=== PATIENT | male | born 1970 | race Caucasian/White ===

== ENCOUNTER 2018-05-05 06:11 | Day surgery (SDC) | payer OTHER ==
[2018-05-05] MEDS ORDERED: ceFAZolin 2 GM/DEXTROSE 100 ML IV ONE (06:21)
[2018-05-05] MEDS ORDERED: ACETAMINOPHEN 500 MG TAB PO ONE (06:21)
[2018-05-05] MEDS ORDERED: LR 1,000 ML IV ONE (06:24)
[2018-05-05] MEDS ORDERED: LIDOCAINE 1% 2 ML INJ ID PRN (06:24)
[2018-05-05] MEDS ORDERED: EPINEPHrine 1 MG/ML INJ ONE (07:17)
[2018-05-05] MEDS ORDERED: BACITRACIN ZINC 14.2 GM OINTTUBE TP ONE (07:17)
[2018-05-05] MEDS ORDERED: BUPIVACAINE 0.25% 30 ML SDV ONE (07:17)
[2018-05-05] MEDS ORDERED: GENTAMICIN SULFATE 80 MG/2 ML VIAL ONE (07:19)
[2018-05-05] MEDS ORDERED: CHLORHEXIDINE GLUC HIBICLENS 118 ML BTL TP ONE (07:19)
--- NOTE | 2018-05-05 07:51 | PDANEPAE ---
ANE History of Present Illness 48 year old for spinal cord stimulator generator change. ANE Past Medical History - Cardiovascular History Hx Hypertension: No Hx Arrhythmias: No Hx Chest Pain: No Hx Coronary Artery / Peripheral Vascular Disease: No Hx CHF / Valvular Disease: No Hx Palpitations: No - Pulmonary History Hx COPD: No Hx Asthma/Reactive Airway Disease: No Hx Recent Upper Respiratory Infection: No Hx Oxygen in Use at Home: No Hx Sleep Apnea: Yes Sleep Apnea Screening Result - Last Documented: Positive Pulmonary History Comment: CARLOS INSTRUCTED TO BRING DOS - Neurologic History Hx Cerebrovascular Accident: No Hx Seizures: No Hx Dementia: No Neurologic History Comment: 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 PTSD - Cancer History Hx Cancer: No - Congenital Disorder History Hx Congenital Disorders: No - GI History Hx Gastrointestinal Disorders: Yes Gastrointestinal History Comment: REFLUX - Other Health History Other Health History: CHRONIC PAIN SYNDROME. NERVE DAMAGE LOWER LT SCIATIC NERVE AND SOME ON RT. FULL DENTURES - Chronic Pain History Chronic Pain: Yes - Surgical History Prior Surgeries: SPINAL CORD STIMULATOR 2012. LUMBAR FUSION. RT KNEE ACL REPAIR. PILONIDAL CYST. ELKIN MASTECTOMY FOR TRANSGENDER TRANSFORMATION ANE Review of Systems Review of systems is: negative Review of Systems: - Exercise capacity Exercise capacity: >=4 METS METS (RN): 4 METS ANE Patient History - Allergies Allergies/Adverse Reactions: latex Allergy (Verified 05/05/18 06:35) Rash tree nut [Pecans] Allergy (Verified 05/05/18 06:35) Anaphylaxis walnut Allergy (Verified 05/05/18 06:35) Anaphylaxis - Home Medications Home medications: home medication list seen and reviewed Home Medications: Atorvastatin Calcium HS 04/09/18 [Last Taken 05/04/18 22:30] Baclofen TID 04/09/18 [Last Taken 05/04/18 22:30] DULoxetine DAILY 04/09/18 [Last Taken 05/04/18 22:30] Gabapentin BID 04/09/18 [Last Taken 05/04/18 22:30] Herbals/Supplements -Info Only DAILY 04/09/18 [Last Taken 05/02/18] Meloxicam DAILY 04/09/18 [Last Taken 04/28/18] Pantoprazole Sodium 04/09/18 [Last Taken 05/04/18 22:30] Prazosin HCl 04/09/18 [Last Taken 05/04/18 22:30] - NPO status NPO Status: no food or drink >8 hours NPO Since - Liquids (Date): 05/04/18 NPO Since - Liquids (Time): 23:30 NPO Since - Solids (Date): 05/04/18 NPO Since - Solids (Time): 22:00 - Anes Hx Anes Hx: slow to awaken from anesthesia - Smoking Hx Smoking Status: Former smoker Marijuana use: Yes - Alcohol Use Alcohol Use: Rarely - Family Anes Hx Family Anes Hx: neg - N/A ANE Labs/Vital Signs - Vital Signs Vital Signs: reviewed preoperatively; see RN documention for details Blood Pressure: 108/63 Heart Rate: 60 Respiratory Rate: 16 O2 Sat (%): 93 Height: 173.99 cm Weight: 110.677 kg ANE Physical Exam - Airway Neck exam: FROM Mallampati Score: Class 2 Mouth exam: dentures, melvin - Pulmonary Pulmonary: no respiratory distress - Cardiovascular Cardiovascular: regular rate and rhythym - ASA Status ASA Status: II ANE Anesthesia Plan Anesthesia Plan: general endotracheal anesthesia Total IV Anesthesia: No
[2018-05-05] MEDS ORDERED: MIDAZOLAM 2 MG/2 ML VIAL IVP ONE (08:04)
[2018-05-05] MEDS ORDERED: PROPOFOL/EMULSION 500 MG/50 ML BOTTLE IV ONE (08:16)
[2018-05-05] MEDS ORDERED: fentaNYL 100 MCG/2 ML INJ ONE ×2 (08:19→10:34)
[2018-05-05] MEDS ORDERED: LIDOCAINE 2% 5 ML SDV ONE (08:21)
[2018-05-05] MEDS ORDERED: ROCURONIUM 50 MG/5 ML VIAL ONE (08:21)
[2018-05-05] MEDS ORDERED: DEXAMETHASONE 4 MG/ML VIAL ONE (08:41)
[2018-05-05] MEDS ORDERED: ONDANSETRON 4 MG/2 ML VIAL ONE (08:41)
--- NOTE | 2018-05-05 09:08 | PDHPUP ---
History & Physical Update H&P update statement: This history and physical update is based on an assessment of the patient which was completed after admission or registration (within 24 hours), but prior to the surgery/procedure. H&P update: no change in patient's condition since H&P completed
[2018-05-05] MEDS ORDERED: ONDANSETRON 4 MG/2 ML VIAL IVP PRN (09:40)
[2018-05-05] MEDS ORDERED: LR 500 ML IV PRN (09:40)
[2018-05-05] MEDS ORDERED: PHENYLEPHRINE HCL 100 MCG/ML SYR IVP PRN (09:40)
[2018-05-05] MEDS ORDERED: fentaNYL 100 MCG/2 ML INJ IVP PRN (09:40)
[2018-05-05] MEDS ORDERED: NALOXONE HCL 0.4 MG/ML INJ IVP PRN (09:40)
[2018-05-05] MEDS ORDERED: HYDROCODONE/APAP 5/325 TAB PO PRN (09:40)
--- NOTE | 2018-05-05 09:58 | NEUSURGPN ---
Date of Surgery: 05/05/18 Post Op Day: 0 Assessment/Plan: D/C when SDS criteria met FU 2 weeks for sutures Remove dressing and shower in 3 days Subjective: Doing well. No complaints Objective: follows commands, MAEWx 4, dressing c/d/i system programmed Urinary Catheter in Place: No - Physician Patient Seen by : [facility] Physical Exam - Vitals, I&O, Labs I and O 05/04/18 05/05/18 05/06/18 05:59 05:59 05:59 Weight 110.677 kg Vital Signs Temp Pulse Resp BP Pulse Ox 36.5 C 60 16 108/63 93 05/05/18 08:15 05/05/18 08:15 05/05/18 08:15 05/05/18 08:15 05/05/18 08:15 ICD10 Worksheet Patient Problems: Problems Problem Status Onset Chronic pain Acute - ICD10 Problem Qualifiers (1) Chronic pain
--- NOTE | 2018-05-05 10:18 | GOP ---
[f rep st] OPERATIVE REPORT DATE OF OPERATION: 05/05/2018 SURGEON: Hayley Macario DO NEUROSURGEON: Hayley Macario DO. HIP HOP PERFORMERS: None. PREOPERATIVE DIAGNOSIS: 1. Chronic pain syndrome. 2. Depleted spinal cord stimulator generator. POSTOPERATIVE DIAGNOSIS: 1. Chronic pain syndrome. 2. Depleted spinal cord stimulator generator. PROCEDURE PERFORMED: 1. Replacement of left hip spinal cord stimulator generator with [employer] WaveWriter genera tor. 2. Impedances. FINDINGS: SPECIMENS: None. ESTIMATED BLOOD LOSS: 0 mL. INDICATIONS: This is a 48-year-old male with an indwelling spinal cord stimulator paddle lead, [employer] system with a completely depleted generator. He has elected to move forward with replac ement with WaveWriter generator. DESCRIPTION OF PROCEDURE: He was identified, consented. Sites were marked. Brought to the operatin g room, anesthetized under general endotracheal tube anesthesia, rolled onto the OR bed with a Godfrey frame. All pressure points were appropriately padded. Incision site had been marked preoperatively . He was prepped and draped in the usual sterile fashion. Incision was anesthetized with 0.5% Jolanta ine with epinephrine. Incision was made with a 10 blade, dissecting down onto the generator with the PlasmaBlade, brought the generator up and out using the torque wrench, removed the leads and kept th em in the appropriate configuration. Placed plugs in the inferior ports of the WaveWriter. Placed t he leads into the generator, checked the impedances, locked the leads into position with a torque wre nc. Rechecked impedances, all impedances were good. Replaced the generator pocket, sutured it to th e fascia with 2-0 silk stitch. At a single position could not reach the 2nd position. However, the pocket was particularly tight and well scarred in. Copiously irrigated with over a liter of gentamic in-infused saline. Closed the subcutaneous layer with 2-0 Vicryl pop-offs, cutaneous layer of 3-0 Vi cryl pop-offs. The skin was closed with 3-0 running nylon. The wound was dressed with Xeroform gauz e and a Tegaderm. Patient tolerated the procedure well. No complications. FLUIDS: 600 mL crystalloid. URINE OUTPUT: None. DRAINS: None. COMPLICATIONS: None. /[id number]/MODL
[2018-05-05 11:12] VITALS: BP 111/70
--- NOTE | 2018-05-05 14:31 | POSTANESTH ---
Post Anesthetic Evaluation Cardiovascular Status: Normal, Stable, Similar to Pre-Op Cond Respiratory Status: Normal, Stable, Similar to Pre-op Cond. Level of Consciousness/Mental Status: Can Participate in Eval, Alert and Oriented Pain Control: Adequate, Prn Tx Ordered Nausea/Vomiting Control: Adequate, Prn Tx Ordered Complications Possibly Related to Anesthesia: None Noted
== END 2018-05-05 11:47 | disposition home or self-care (01) ==
LOC: FSGY 06:11
PROVIDERS: ATTEND Neurological Surgery
PROC: 0JPT0MZ Removal of Stimulator Generator from Trunk Subcutaneous Tissue and Fascia, Open Approach (ICD-10-PCS; principal; 2018-05-05 08:30)
PROC: 0JH70MZ Insertion of Stimulator Generator into Back Subcutaneous Tissue and Fascia, Open Approach (ICD-10-PCS; principal; 2018-05-05 08:30)
DX: Z45.49 Encounter for adjustment and management of other implanted nervous system device (principal); G89.4 Chronic pain syndrome; M96.1 Postlaminectomy syndrome, not elsewhere classified; M51.24 Other intervertebral disc displacement, thoracic region; G47.33 Obstructive sleep apnea (adult) (pediatric); Z98.1 Arthrodesis status; Z87.891 Personal history of nicotine dependence; Z87.820 Personal history of traumatic brain injury; Z90.13 Acquired absence of bilateral breasts and nipples
CPT/HCPCS: C1820; J0171; J0690; J1100; J1580; J2250; J2405; J2704; J3010